=== PATIENT | male | born 1985 | race Caucasian/White ===

== ENCOUNTER 2024-04-08 00:55 | Emergency (ER) | payer OTHER, MEDICAID, SELFPAY ==
[2024-04-08 01:02] VITALS: BP 131/77; PULSE 80; RESP 17; TEMP 37.5; O2SAT 95
[2024-04-08 01:03] VITALS: BP 119/72; PULSE 91; RESP 19; TEMP 37.3; O2SAT 98; BMI 27.2
--- NOTE | 2024-04-08 01:06 | PD.EDCHEST ---
ED Chest Pain RME/HPI General Chief Complaint: Chest Pain Stated Complaint: CHEST PAIN Time Seen by Provider: 04/08/24 01:08 Arrival date/time: 04/08/24 00:55 RME / HPI RME / HPI narrative: This section includes all my notes and documentations, including HPI, PE, and ED course. Greg Bunn MD HPI: 39yo male with a history of HTN, HLD presents to the ED for a chief complaint of intermittent chest pain. Patient states he woke up having chest pain at 1700, about 8 hours ago, reporting it's been progressively getting worse. No radiation or migration. He states his episodes of severe sharp chest pain last for a couple seconda, but are on and off. EMS administered Aspirin 325mg, sublingual nitroglycerin 0.4mg, and 1 inch nitropaste en route with equivocal improvement of symptoms. He also reports about a week of worsening cough, productive cough, purulent sputum, and dyspnea. He denies any fever, chills or any other associated symptoms. No other complaints. ROS: All negative except as documented in HPI. Physical Exam: General: Alert and oriented. Appears to have a few seconds of severe chest pain intermittently. Eyes: Conjunctivae and lids clear. ENT: No nasal congestion. Neck: Supple. Heart: RRR. Lungs: No respiratory distress. Good air movement with mild rhonchi. Abdomen: Soft and nontender. Legs: No clubbing, cyanosis, edema. Skin: Warm and dry. Neuro: Alert and oriented X 3. I reviewed all diagnostic test results. My interpretation of the EKG is sinus rhythm with no ST-T changes. Blood tests and urine tests remarkable for Mg 1.4. Influenza POSITIVE. At this point, diagnoses include Influenza and Hypomagnesemia causing muscle twitching. Treatment here included Diazepam, MgSO4, Tamiflu. Significant improvement noted. Recommended more outpatient cardiac workup. Based on my best medical judgment, made decision no further evaluation or treatment indicated at this time. Patient understands and agrees to the discharge instructions customized and printed, see below. Discharge instructions from Dr. Bunn: --After extensive evaluation, there is no life-threatening condition.? Such as heart attack or pulmonary embolism (blood clots in your lungs) or pneumothorax (collapsed lung). --But you have influenza and very low magnesium level causing severe muscle spasms. --No physical exertion for 3 days to help rest your lungs. --No smoking and no exposure to smoking or pets or dust or cold air. --Tamiflu to kill the influenza germs. --Prednisone to help decrease inflammation of the lungs. --Ibuprofen 800 mg every 8 hours today and tomorrow.? Then as needed for fever or pain. --Diazepam for severe muscle spasms. --Magnesium supplement as prescribed. Try to increase food rich in magnesium, such as green leafy vegetables and peanuts and almonds and cashews. ?Increase oral fluid.? We need extra fluid when we are sick.?? --See a private doctor on 04/10/2024 for recheck and further care. Ask to review all test results and official radiology reports, to make sure you receive all necessary follow-ups and monitoring, including repeat magnesium level. To make sure there is no serious underlying heart condition, ask to help you get more tests for your heart that cannot be done here in the ER. Such as Holter Monitor (cardiac monitoring at home from a day to even a month), heart stress test (on treadmill or with medication), echocardiogram (imaging of your heart structures), heart catherization (checking for blockages in your heart arteries), and a referral to see a Environmental Scientist. --Seek immediate medical care with significant worsening or with any concerns. Greg Bunn MD Related Data Home Medications ?Medication ?Instructions ?Recorded ?Confirmed metoprolol tartrate 50 mg tablet 25 mg PO BID 06/04/17 10/07/19 Previous Rx's ?Medication ?Instructions ?Recorded omeprazole 40 mg capsule,delayed 40 mg PO QDAY #30 caps 10/07/19 release chlordiazepoxide HCl 10 mg capsule 10 mg PO Q6H PRN alcohol 01/25/20 withdrawal #30 caps diazepam 2 mg tablet 2 mg PO TID PRN muscle spasm #10 04/08/24 tabs magnesium oxide 400 mg PO BID #60 caps 04/08/24 oseltamivir 75 mg capsule (Tamiflu) 75 mg PO BID 5 days #10 caps 04/08/24 prednisone 50 mg tablet 50 mg PO QDAY #5 tabs 04/08/24 Allergies Allergy/AdvReac Type Severity Reaction Status Date / Time No Known Allergies Allergy Verified 10/06/19 19:10 Review of Systems Review of Systems Systems Reviewed: All systems reviewed, normal except as documented ED Exam Narrative Physical exam: As noted in HPI. Course Course Course Narrative: CXR is ordered for determining the etiology of chest pain. Quality Measures none Orders Category Date Time Status Bedside COVID-19 Antigen Test NOW Care 04/08/24 01:12 Completed Bedside Influenza A&B Antigen Test NOW Care 04/08/24 01:12 Completed EKG (ED ONLY) *Do not use* NOW Care 04/08/24 01:13 Completed Saline [Insert IV] NOW Care 04/08/24 01:12 Completed EKG (ED Only) Stat Exams 04/08/24 01:13 Ordered BNP [B-Type Natriuretic Peptide] Stat Lab 04/08/24 02:06 Completed CBC Stat Lab 04/08/24 02:06 Completed CMP [Comprehensive Metabolic Panel] Stat Lab 04/08/24 02:06 Completed D-Dimer Stat Lab 04/08/24 02:06 Completed Drug Screen,Urine Stat Lab 04/08/24 03:08 Completed Magnesium Stat Lab 04/08/24 02:06 Completed TSH [Thyroid Stimulating Hormone] Stat Lab 04/08/24 02:06 Completed Troponin I Stat Lab 04/08/24 02:06 Completed Diazepam Inj [Valium Inj] Med 04/08/24 01:12 Discontinued 2.5 mg IVP X1 ONE Diazepam Inj [Valium Inj] Med 04/08/24 04:59 Discontinued 2.5 mg IVP X1 ONE Magnesium Sulfate 1 gm Ivpb [Magnesium Sulfate Ivpb] Med 04/08/24 04:59 Discontinued 1 gm in 100 ml IV X1 Magnesium Sulfate 2 GM Ivpb [Magnesium Sulfate Ivpb] Med 04/08/24 03:09 Discontinued 2 gm in 50 ml IV X1 Oseltamivir [Tamiflu] Med 04/08/24 02:40 Discontinued 75 mg PO X1 ONE Vital Signs Vital signs: Vital Signs Temperature 99.5 F 04/08/24 01:02 Pulse Rate 80 04/08/24 01:02 Respiratory Rate 17 04/08/24 01:02 Blood Pressure 131/77 H 04/08/24 01:02 Pulse Oximetry (%) 95 04/08/24 01:02 Oxygen Delivery Method Room Air 04/08/24 01:02 Chest Pain MDM Narrative MDM Narrative:: Scribe Attestation: 04/08/24 Oscar Villegas, Jory Aguillon am scribing for and in the presence of Dr. Bunn. Patient data External records reviewed:: [facility] previous records (Per chart review, patient was seen here on 02/15/20 for alcohol abuse.) Clinical information provided by:: patient Social determinants that could affect healthcare access:: none Patient has the following chronic illnesses:: HTN, HLD How is presenting disease/condition affected by chronic disease/condition?: uneffected by Evaluation data The following diagnostics were reviewed and interpreted by me:: lab results, radiology exam(s) and EKG tracing(s) (My interpretation of the EKG: NSR (85 bpm) with no ST-T changes. Greg Bunn MD) Lab and/or radiology exams considered but not ordered:: none Interpretation Summary: Influenza and Hypomagnesemia Medications / Prescriptions Medications or Prescriptions considered but not ordered:: none Medication administrations:: Medication Administration History Discontinued Medications Diazepam (Diazepam Inj 5 Mg/Ml Vial 2 Ml) 2.5 mg IVP X1 ONE Stop: 04/08/24 01:13 Last Admin: 04/08/24 03:19 Dose: 2.5 mg Documented By: EF Diazepam (Diazepam Inj 5 Mg/Ml Vial 2 Ml) 2.5 mg IVP X1 ONE Stop: 04/08/24 05:00 Last Admin: 04/08/24 05:08 Dose: 2.5 mg Documented By: EF Magnesium Sulfate (Magnesium Sulfate Ivpb) 2 gm in 50 mls @ 25 mls/hr IV X1 ONE Stop: 04/08/24 05:08 Last Infusion: 04/08/24 04:59 Dose: Infused Documented By: Admin: 04/08/24 03:19 Dose: 25 mls/hr Documented By: EF Magnesium Sulfate/Dextrose (Magnesium Sulfate Ivpb) 1 gm in 100 mls @ 100 mls/hr IV X1 ONE Stop: 04/08/24 05:58 Last Infusion: 04/08/24 06:20 Dose: Infused Documented By: Admin: 04/08/24 05:08 Dose: 100 mls/hr Documented By: EF Oseltamivir Phosphate (Oseltamivir 75 Mg Capsule) 75 mg PO X1 ONE Stop: 04/08/24 02:41 Last Admin: 04/08/24 03:19 Dose: 75 mg Documented By: EF Diazepam and MgSO4 and Tamiflu Consultations Consultation(s) initiated? (list below): No Diagnosis Chest Pain Differential Diagnosis: stable angina, unstable angina pectoris, atypical chest pain, st elevation myocardial infarction, costochondritis and other (Electrolyte abnormalities, Covid, Influenza) Most likely diagnosis given after review of the tests above:: Influenza and Hypomagnesemia Admission Indicated Admission indicated?: not indicated Explain why admission is indicated or not indicated:: No criteria for admission Admission Request Was there a request for admission?: No Disposition Plan Disposition Plan: Discharge Discharge Attestation Discharge Attestation: The patient and all family members were given an opportunity to ask questions and understood the discharge instructions. Discharge instructions specifically effects, indications for sooner follow up or return to the emergency department, and the expected course of current diagnosis. Patient condition: Stable Discharge Plan Plan Patient Disposition: HOME (Self Care) Prescriptions/Referrals Prescriptions/Med Rec: New oseltamivir [Tamiflu] 75 mg capsule 75 mg PO BID 5 Days Qty: 10 0RF prednisone 50 mg tablet 50 mg PO QDAY Qty: 5 0RF diazepam 2 mg tablet 2 mg PO TID PRN (Reason: muscle spasm) Qty: 10 0RF magnesium oxide 400 mg magnesium capsule 400 mg PO BID Qty: 60 0RF No Action chlordiazepoxide HCl 10 mg capsule 10 mg PO Q6H PRN (Reason: alcohol withdrawal) Qty: 30 0RF metoprolol tartrate 50 mg Tablet 25 mg PO BID Rx Instructions: RAN OUT 03/06/2019 omeprazole 40 mg capsule,delayed release(DR/EC) 40 mg PO QDAY Qty: 30 0RF Referrals: Vanessa Liriano FNP [Primary Care Provider] - In 1 week Problem List Clinical Impression: Influenza, Hypomagnesemia Patient/Caregiver Discharge Instructions Discharge Activity: activity as tolerated Education Materials: Magnesium (Blood), ED Influenza (Adult) Additional Instructions: Discharge instructions from Dr. Bunn: --After extensive evaluation, there is no life-threatening condition.? Such as heart attack or pulmonary embolism (blood clots in your lungs) or pneumothorax (collapsed lung). --But you have influenza and very low magnesium level causing severe muscle spasms. --No physical exertion for 3 days to help rest your lungs. --No smoking and no exposure to smoking or pets or dust or cold air. --Tamiflu to kill the influenza germs. --Prednisone to help decrease inflammation of the lungs. --Ibuprofen 800 mg every 8 hours today and tomorrow.? Then as needed for fever or pain. --Diazepam for severe muscle spasms. --Magnesium supplement as prescribed. Try to increase food rich in magnesium, such as green leafy vegetables and peanuts and almonds and cashews. ?Increase oral fluid.? We need extra fluid when we are sick.?? --See a private doctor on 04/10/2024 for recheck and further care. Ask to review all test results and official radiology reports, to make sure you receive all necessary follow-ups and monitoring, including repeat magnesium level. To make sure there is no serious underlying heart condition, ask to help you get more tests for your heart that cannot be done here in the ER. Such as Holter Monitor (cardiac monitoring at home from a day to even a month), heart stress test (on treadmill or with medication), echocardiogram (imaging of your heart structures), heart catherization (checking for blockages in your heart arteries), and a referral to see a Environmental Scientist. --Seek immediate medical care with significant worsening or with any concerns. Print Language: Persian Stand Alone Forms: [employer] Award Info., Patient Portal Info Letter
[2024-04-08 01:17] VITALS: PULSE 80; RESP 18; O2SAT 99
--- NOTE | 2024-04-08 01:25 | PC.NURSE ---
patient BIBA for chest pain that has been going on intermittently for the past hour. patient states he has had similar episodes in the past and was at work when this happened.
[2024-04-08 03:01] LABS: B-Type Natriuretic Peptide < 20 pg/mL (0-100)
[2024-04-08 03:04] LABS: Alanine Aminotransferase 45 U/L (10-49); Albumin, Serum 4.2 gm/dL (3.5-5.0); Albumin/Globulin Ratio 1.3 (1.2-2.2); Alkaline Phosphatase 78 U/L (46-116); Anion Gap 9 (7-16); Aspartate Amino Transferase 94 U/L (0-34); BUN/Creatinine Ratio 9 Ratio (12-20); Bilirubin,Total 0.8 mg/dL (0.3-1.2); Blood Urea Nitrogen 8 mg/dL (9-23); Calcium 9.4 mg/dL (8.3-10.6); Calcium (Corrected) 9.4 mg/dL (8.5-10.1); Chloride 105 mMol/L (98-107); Creatinine (Component) 0.9 mg/dL (0.6-1.3); Estimated Creatinine Clearance 112.7 mL/min (>60); Globulin 3.2 gm/dL (2.3-3.5); Glucose 104 mg/dL (74-106); Magnesium 1.4 mg/dL (1.6-2.6); Osmolality,Calculated 277 (275-295); Potassium 3.6 mMol/L (3.4-5.1); Sodium 140 mMol/L (136-145); Thyroid Stimulating Hormone 1.42 uIU/mL (0.55-4.78); Total Protein 7.4 gm/dL (5.7-8.2); Troponin I < 0.002 ng/mL (0.0-0.045); eGFR > 60 See Note
[2024-04-08] MEDS: DIAZEPAM INJ 5 MG/ML VIAL 2 ML 2.5 MG IVP ×2 (03:19→05:08)
[2024-04-08] MEDS: OSELTAMIVIR 75 MG CAPSULE PO (03:19)
[2024-04-08] MEDS: Magnesium Sulfate 2 GM Ivpb 2 GM/50 ML BAG IV (03:19)
[2024-04-08 03:20] LABS: Basophils % (Auto) 1 % (0-2.5); Eosinophils % (Auto) 1 % (0-10); Hematocrit 40.8 % (41.0-53.0); Hemoglobin 14.6 g/dL (13.5-16.0); Immature Granulocytes % (Auto) 0 % (0-0); Immature Granulocytes Auto 0.01 Thou/mm3 (0.00-0.00); Lymphocytes # (Auto) 1.4 Thou/mm3 (1.0-4.8); Lymphocytes % (Auto) 22 % (10-50); Mean Corpuscular HGB Conc 35.8 g/dl (31.0-37.0); Mean Corpuscular Hemoglobin 35.9 pg (25.0-35.0); Mean Corpuscular Volume 100 fL (80-100); Monocytes # (Auto) 0.8 Thou/mm3 (0.0-0.8); Monocytes % (Auto) 12 % (0-12); Neutrophils # (Auto) 4.1 Thou/mm3 (1.8-7.7); Neutrophils % (Auto) 64 % (37-80); Nucleated Red Blood Cell % 0 /100 WBC (0); RDW Standard Deviation 44.4 fL (35.1-43.9); Red Blood Count 4.07 Miln/mm3 (4.50-5.90); White Blood Count 6.3 Thou/mm3 (3.8-10.6)
[2024-04-08 03:25] LABS: Platelet Count 76 Thou/mm3 (140-440)
[2024-04-08 03:27] LABS: Slide Review Platelets confirmed
[2024-04-08 04:36] LABS: Amphetamine/Methamp Scrn,U Negative (Negative); Barbiturate Screen,Urine Negative (Negative); Benzodiazepines Screen,Urine Negative (Negative); Benzoylecgonine Screen, Ur Negative (Negative); Fentanyl Screen,Urine Negative (Negative); Opiate Screen,Urine Negative (Negative); THC Screen,Urine Negative (Negative)
[2024-04-08] MEDS: Magnesium Sulfate 1 gm Ivpb 1 GM/100 ML BAG IV (05:08)
[2024-04-08 05:36] LABS: D-Dimer 312 ng/mL (<600)
[2024-04-08 05:37] VITALS: BP 151/80; PULSE 69; RESP 18; TEMP 36.9; O2SAT 96
[2024-04-08 06:31] VITALS: BP 115/63; PULSE 72; RESP 16; TEMP 36.9; O2SAT 97
== END 2024-04-08 06:32 | disposition home or self-care (01) ==
PROVIDERS: Emergency Provider Emergency Medicine; PCP Nurse Practitioner Family
DX: J11.1 Influenza due to unidentified influenza virus with other respiratory manifestations (principal); E83.42 Hypomagnesemia; E78.5 Hyperlipidemia, unspecified; I10 Essential (primary) hypertension
CPT/HCPCS: 36415; 80053; 80307; 83735; 83880; 84443; 84484; 85025; 85379; 87400; 87811; 93005; 96365; 96366; 96367; 96375; 96376; 99284; J3360; J3475; A9270